=== PATIENT | female | born 1980 | race Caucasian/White ===

== ENCOUNTER 2024-03-10 | Emergency (ER) | payer MEDICAID, SELFPAY ==
[2024-03-10] VITALS (8 sets, daily range): BP systolic 110–139; BP diastolic 66–97; BMI 25.4
[2024-03-10] MEDS: NSS 1000 IV (00:17)
--- NOTE | 2024-03-10 00:30 | EDRN ---
Patient comes in very uncooperative at this time, trying to get out of bed, yelling and cursing at staff, kicking as well at this time, verbal redirection was attempted, patient is not listening she is screaming profanities at staff. Dr. Dyer at
bedside, patient is placing herself and staff at risk for safety. Restraints ordered to be placed on patient for safety of patient as well as meds.
[2024-03-10 00:35] LABS: HCG, Serum Qualitative Screen Negative
[2024-03-10 00:40] LABS: % Eosinophils 0.8 % (0-6); % Immature Granulocytes 0.3 % (0-0.5); % Lymphocytes 44.7 % (20.5-51.1); % Monocytes 10.1 % (1.7-9.3); % Neutrophils 42.1 % (42.2-75.2); Absolute Basophils 0.1 10^3/uL (0-0.2); Absolute Eosinophils 0.1 10^3/uL (0-0.7); Absolute Lymphocytes 2.7 10^3/uL (1.2-3.4); Absolute Monocytes 0.6 10^3/uL (0.1-0.6); Absolute Neutrophils 2.5 10^3/uL (1.4-6.5); Hemoglobin 15.5 g/dL (12.0-16.0); Mean Corp Hgb Conc. 35.2 g/dL (33.0-37.0); Mean Corpuscular Volume 96.5 fL (81.0-99.0); Nucleated Red Blood Cells % 0 %; Platelet Count 276 10^3/uL (130-400); Red Blood Cell Count 4.56 10^6/uL (4.20-5.40); Red Cell Dist. Width 12.7 % (11.5-14.5)
[2024-03-10 00:50] LABS: ALT (SGPT) 30 U/L (0-35); AST (SGOT) 51 U/L (14-36); Acetaminophen < 10 ug/ml (10-30); Albumin 4.9 g/dl (3.5-5.0); Alkaline Phosphatase 125 U/L (38-126); Blood Urea Nitrogen 10 mg/dl (7-17); Carbon Dioxide 19 mmol/L (22-30); Chloride 103 mmol/L (98-107); Estimated Creatinine Clearance 64 ml/min; Glucose 147 mg/dl (70-99); Potassium 3.9 mmol/L (3.5-5.1); Salicylate < 1.0 mg/dl (2.0-20.0); Sodium 143 mmol/L (135-145); Total Bilirubin 0.4 mg/dl (0.2-1.3); Total Protein 7.8 g/dl (6.3-8.2); eGFR > 60.00
[2024-03-10] MEDS: ATIVAN 2 MG IV (00:50)
[2024-03-10] MEDS: HALDOL 2 MG IV (00:50)
[2024-03-10 01:02] LABS: Alcohol 545 mg/dl
--- NOTE | 2024-03-10 02:10 | ED.GENMED ---
History of Present Illness
<Rossana Dyer DO - Last Filed: 03/10/24 07:29>
General
Chief Complaint: Overdose Unintentional
Source: ambulance crew, police and other (Received a telephone call from patient's boyfriend VERONICA as well as spoke with family friend who was accompanying AJ on this telephone call.)
Exam Limitations: altered mental status (Significant intoxication, agitation)
Time Seen by Provider: 03/10/24 00:10
Nursing documentation reviewed up to this point in time: agreed with
History of Present Illness
History of Present Illness:
This is a 44-year-old woman who was brought to the ED by EMS after she became significantly agitated and belligerent while drinking alcohol at a bar and [place]. According to EMS who spoke with the luli, patient frequents this bar in [place]
and she was served her usual cocktails. Refractory Grinder Operator however concerned with patient's erratic and agitated behavior. Concern for possible ingestion.
There is no report of fall nor injury. Patient did not lose consciousness.
Patient was quite agitated for EMS but did not require sedating medication during transport.
I received a telephone call from patient's boyfriend, VERONICA who relates that patient has a longstanding history of alcohol abuse and more recently over the past several months has been consuming alcohol on a daily basis. Prior to this she had been
sober for approximately 1-1/2 years.
She has no prior history of drug abuse/drug use.
He believes her only daily medication is control pills.
He also reports she has history of cervical disc disease, chronic neck pain and prior history of shoulder surgery.
Patient resides alone, independently.
Past History
<Rossana Dyer DO - Last Filed: 03/10/24 07:29>
Past History
ED Past Medical History: Other (Cervical disc disease; alcohol abuse)
ED Past Surgical History: Orthopedic ( shoulder surgery)
Social History
Tobacco: Non-smoker
Alcohol: Chronic alcoholic
Drug: None
Personal: Single
Living: alone
Family History
Family History: Unable to obtain
Phy Exam
<Rossana Dyer DO - Last Filed: 03/10/24 07:29>
Physical Exam
Physical Exam:
GENERAL: 44-year-old woman appears her stated age. She is significantly agitated, attempting to thrash about the stretcher, yelling obscenities and swinging at staff. Appears significantly intoxicated. Moderate odor of alcohol about her breath.
EYE: The head is normocephalic, atraumatic. Pupils are equal and round.
NECK: Supple, nontender, no adenopathy.
ENT: posterior pharynx is clear, oral mucosa is mildly dry. No rhinorrhea.
CARDIAC: Regular rhythm, tachycardic no murmur.
LUNGS: no acute respiratory distress, lungs are clear bilaterally.
ABDOMEN: Soft, nondistended, without focal tenderness
NEUROLOGICAL: Awake, significantly agitated, oriented x 2, no focal neurodeficits.
SKIN: Warm and dry, normal color, skin intact. No rash.
MUSCULOSKELETAL: No C/C/E. peripheral pulses are full and equal b/l. No palpable tenderness.
PSYCH: Severely agitated. She has not been receptive to verbal cueing and attempts to de-escalate with verbal reassurance.
Course
<Rossana Dyer DO - Last Filed: 03/10/24 07:29>
Orders/Labs/Results
Orders:
Orders
03/10/24 00:10
0.9% Sodium Chloride 1000 ml [Nss] 1,000 ml IV BOLUS
Test Result ONCE
03/10/24 00:15
Acetaminophen Urgent
Alcohol Urgent
Complete Blood Count/With Diff Urgent
Comprehensive Metabolic Panel Urgent
HCG, Serum Qualitative Screen Urgent
Salicylate Urgent
03/10/24 00:30
1:1 Observation - Suicide/ Violent Behavior As Directed
Restraints - Violent As Directed
Restraint Type-: Locked-4 point/4 rails
Apply From (date): 03/10/24
Apply from (time): 00:30
Remove (date): 03/10/24
Remove (time): 04:30
03/10/24 00:40
Haloperidol Lactate [Haldol] 5 mg .ROUTE .STK-MED ONE
Lorazepam [Ativan] 2 mg .ROUTE .STK-MED ONE
03/10/24 00:48
Lorazepam [Ativan] 2 mg IV NOW STA
03/10/24 00:49
Haloperidol Lactate [Haldol] 1 mg IV NOW STA
03/10/24 00:50
Haloperidol Lactate [Haldol] 2 mg IV NOW STA
03/10/24 00:51
Electrocardiogram (*1) Urgent
Reason for Study: QTc Monitoring
EKG- Treatment ONCE
03/10/24 02:26
Urine Drug Abuse Screen Urgent
Date Specimen was Collected: 03/10/24
Time Specimen was Collected: 00:14
03/10/24 02:37
Lindsey [Lindsey Placement- Treatment] ONCE
Reason for insertion: Acute Retention
03/10/24 04:30
1:1 Observation - Suicide/ Violent Behavior As Directed
Restraints - Violent As Directed
Restraint Type-: Locked-4 point/4 rails
Apply From (date): 03/10/24
Apply from (time): 04:30
Remove (date): 03/10/24
Remove (time): 08:30
Abnormal Lab Results
03/10/24 03/10/24
00:15 02:26
MCH 34.0 H pg
(27.0-31.0)
Neutrophils % 42.1 L %
(42.2-75.2)
Monocytes % 10.1 H %
(1.7-9.3)
Carbon Dioxide 19 L mmol/L
(22-30)
Glucose 147 H mg/dl
(70-99)
AST 51 H U/L
(14-36)
Salicylates < 1.0 L mg/dl
(2.0-20.0)
Acetaminophen < 10 L ug/ml
(10-30)
U Marijuana (THC) Screen Positive H
(Negative)
Alcohol, Quantitative 545 H* mg/dl
03/10/24 00:15
03/10/24 00:15
Vital Signs
Initial and Last Documented VS:
Initial Vital Signs
Temp Pulse Resp BP Pulse Ox
98.4 F 111 30 139/97 93
03/10/24 00:05 03/10/24 00:05 03/10/24 00:05 03/10/24 00:05 03/10/24 00:05
Last Documented Vital Signs
Temp Pulse Resp BP Pulse Ox
98.4 F 108 24 110/66 93
03/10/24 00:05 03/10/24 08:15 03/10/24 08:15 03/10/24 08:00 03/10/24 08:15
<Gold Stern, DO - Last Filed: 03/10/24 10:06>
Orders/Labs/Results
Orders:
Orders
03/10/24 00:10
0.9% Sodium Chloride 1000 ml [Nss] 1,000 ml IV BOLUS
Test Result ONCE
03/10/24 00:15
Acetaminophen Urgent
Alcohol Urgent
Complete Blood Count/With Diff Urgent
Comprehensive Metabolic Panel Urgent
HCG, Serum Qualitative Screen Urgent
Salicylate Urgent
03/10/24 00:30
1:1 Observation - Suicide/ Violent Behavior As Directed
Restraints - Violent As Directed
Restraint Type-: Locked-4 point/4 rails
Apply From (date): 03/10/24
Apply from (time): 00:30
Remove (date): 03/10/24
Remove (time): 04:30
03/10/24 00:40
Haloperidol Lactate [Haldol] 5 mg .ROUTE .STK-MED ONE
Lorazepam [Ativan] 2 mg .ROUTE .STK-MED ONE
03/10/24 00:48
Lorazepam [Ativan] 2 mg IV NOW STA
03/10/24 00:49
Haloperidol Lactate [Haldol] 1 mg IV NOW STA
03/10/24 00:50
Haloperidol Lactate [Haldol] 2 mg IV NOW STA
03/10/24 00:51
Electrocardiogram (*1) Urgent
Reason for Study: QTc Monitoring
EKG- Treatment ONCE
03/10/24 02:26
Urine Drug Abuse Screen Urgent
Date Specimen was Collected: 03/10/24
Time Specimen was Collected: 00:14
03/10/24 02:37
Lindsey [Lindsey Placement- Treatment] ONCE
Reason for insertion: Acute Retention
03/10/24 04:30
1:1 Observation - Suicide/ Violent Behavior As Directed
Restraints - Violent As Directed
Restraint Type-: Locked-4 point/4 rails
Apply From (date): 03/10/24
Apply from (time): 04:30
Remove (date): 03/10/24
Remove (time): 08:30
Abnormal Lab Results
03/10/24 03/10/24
00:15 02:26
MCH 34.0 H pg
(27.0-31.0)
Neutrophils % 42.1 L %
(42.2-75.2)
Monocytes % 10.1 H %
(1.7-9.3)
Carbon Dioxide 19 L mmol/L
(22-30)
Glucose 147 H mg/dl
(70-99)
AST 51 H U/L
(14-36)
Salicylates < 1.0 L mg/dl
(2.0-20.0)
Acetaminophen < 10 L ug/ml
(10-30)
U Marijuana (THC) Screen Positive H
(Negative)
Alcohol, Quantitative 545 H* mg/dl
03/10/24 00:15
03/10/24 00:15
Vital Signs
Initial and Last Documented VS:
Initial Vital Signs
Temp Pulse Resp BP Pulse Ox
98.4 F 111 30 139/97 93
03/10/24 00:05 03/10/24 00:05 03/10/24 00:05 03/10/24 00:05 03/10/24 00:05
Last Documented Vital Signs
Temp Pulse Resp BP Pulse Ox
98.4 F 108 24 110/66 93
03/10/24 00:05 03/10/24 08:15 03/10/24 08:15 03/10/24 08:00 03/10/24 08:15
<Rossana Dyer, DO - Last Filed: 03/10/24 07:29>
MDM/Problems Addressed
Differential Diagnosis Includes:
Patient presents via EMS a bar in [place], accompanied by police stenographer.
She has known history of alcohol abuse and according to luli of frequent near daily visitor to this local bar and according to significant other daily alcohol use over the past several months.
She arrives significantly agitated, not amenable to verbal cueing and has required initially soft restraints but with continued escalation of agitation has required IV sedation with Ativan and Haldol along with leather restraints for patient as well
as staff safety.
Sinus tachycardia has markedly increased with increased agitation she otherwise remains hemodynamically stable.
There is no report of fall nor syncope and no evidence of trauma on physical exam.
According to significant other, AJ whom I had a telephone conversation with (#[phone]) he reports no history of drug use. Nonetheless must consider co-ingestions.
Will check labs including alcohol, acetaminophen, salicylate, UDS.
Will continue IV fluids, driver retraining instructor.
At this point no indication for imaging.
Chronic conditions affecting care: Other (Alcohol abuse)
Acute Exacerbation and/or Progression of Chronic Illness:
Alcohol abuse
<Rossana Dyer DO - Last Filed: 03/10/24 07:29>
*Pulse Oximetry
Patient hypoxic: no
*EKG
Interpreted by ED Provider?: Yes
Interpretation: abnormal
Comparison EKG: no comparison EKG present
Rate: tachycardiac
Rhythm: sinus
[place]: normal axis
Interval: normal interval
QRS Pattern: normal QRS
Ischemia: non-specific ST changes
*Vice [employer] Interpretation
Rate: tachycardiac
Interpretation: abnormal
Rhythm: sinus
*Critical Care Note
Total Time (30-74mins, 75-104mins- exclusive of procedures): 30
comment:
Critical care statement: A total of 30 minutes of critical care time was provided for this patient. This includes management of unstable vital signs, evaluation of the patient at bedside, reviewing the patient's pertinent medical records, discussion
with consultants, review of old EKGs and review of pertinent medical records. This time with separate from time utilized to perform the aforementioned documented procedures
<Rossana Dyer DO - Last Filed: 03/10/24 07:29>
Update Note
Update Note:
After 1 IV dose of Ativan and Haldol patient has been resting, sinus tachycardia has resolved and she remains hemodynamically stable. No respiratory depression.
Restraints successfully removed at 5:30 AM.
Labs are remarkable for significantly elevated alcohol level of 545. UDS is positive for only marijuana. All of the labs unremarkable.
Patient remains moderately drowsy, has taken sips of water and is much more cooperative.
At this point however she remains too drowsy to discuss her alcohol use and to discuss inpatient rehab.
My plan is to continue to observe in the ED until awake and sober and if patient agreeable, will consult B cares power and recovery superintendent.
<Gold Stern DO - Last Filed: 03/10/24 10:06>
Update Note
Update Note:
After 1 IV dose of Ativan and Haldol patient has been resting, sinus tachycardia has resolved and she remains hemodynamically stable. No respiratory depression.
Restraints successfully removed at 5:30 AM.
Labs are remarkable for significantly elevated alcohol level of 545. UDS is positive for only marijuana. All of the labs unremarkable.
Patient remains moderately drowsy, has taken sips of water and is much more cooperative.
At this point however she remains too drowsy to discuss her alcohol use and to discuss inpatient rehab.
My plan is to continue to observe in the ED until awake and sober and if patient agreeable, will consult B cares power and recovery superintendent.
10 AM care of patient was transitioned pending reassessment when patient is no longer clinically intoxicated. Patient is now awake and alert and she is declining any [facility] evaluation.
ED Attending Note
<Rossana Dyer DO - Last Filed: 03/10/24 07:29>
-
Portions of this chart may have been created with voice recognition software.� Occasional wrong word or��sound alike� substitutions may have occurred due to the inherent limitations of voice recognition software.
Discharge Plan
Departure
Patient Disposition: Home (Routine Discharge)
Date of Disposition: 03/10/24
Time of Disposition: 10:05
Patient with high blood pressure during this ER visit?: No
Discharge Problem:
Alcohol intoxication in active alcoholic with delirium
Instructions: Alcohol Use Disorder ED, Drug and Alcohol Abuse Information
Referrals:
NONE,* [Family Provider] -
Activity Restrictions/Additional Instructions:
Please return for any worsening symptoms.
You may return at any time if you have further concerns.
Please follow up with your doctor at the first available appointment, preferably this week.
Interventions
Interventions:
*Risk Screen - Suicide Last Done: 03/10/24 00:05
*General Assessment Last Done: 03/10/24 00:05
*Neglect/Abuse Screening Last Done: 03/10/24 00:05
ED- Fall Risk Assessment Last Done: 03/10/24 00:15
*ED COVID-19 Vaccine History Last Done: 03/10/24 00:05
ED- Cardiac Assessment Last Done: 03/10/24 00:15
ED- Neurological Assessment Last Done: 03/10/24 00:15
ED-Psychological Assessment Last Done: 03/10/24 00:15
ED- Pulmonary Assessment Last Done: 03/10/24 00:15
Discharge Date and Time
Print Language: MOHAWK
--- NOTE | 2024-03-10 02:35 | EDRN ---
Patient was restless, went in asked her if she needed to use the restroom, she said yes, went to place on bed [place] and she was wet. Removed leg restraints with security and other nurses at bedside to change sheets and pull up in bed. Dr. Dyer placed
order for pickering catheter to be placed to obtain urine specimen, patient tolerated well and covered with a warm blanket.
[2024-03-10 02:49] LABS: Amphetamines Negative (Negative); Barbiturates Negative (Negative); Benzodiazepines Negative (Negative); Buprenorphine Negative (Negative); Cocaine Negative (Negative); Marijuana Positive (Negative); Methadone Negative (Negative); Methamphetamines Negative (Negative); Opiates Negative (Negative); Phencyclidine Negative (Negative); Tricyclic Antidepressants Negative (Negative)
--- NOTE | 2024-03-10 05:30 | EDRN ---
Patient awake and asking about the bathroom, informed her about the pickering, understood, removed the remaining restraints at this time, gave patient a drink of water and williams crackers, call juan in reach.
== END 2024-03-10 10:58 | disposition home or self-care (01) ==
LOC: EMR
PROVIDERS: EMERGENCY PHYSICIAN Emergency Medicine
DX: F10.129 Alcohol abuse with intoxication, unspecified (principal); R41.0 Disorientation, unspecified
CPT/HCPCS: 99283; 80053; 80143; 80179; 80306; 82077; 84703; 85025; 93005